=== PATIENT | male | born 1995 | race Caucasian/White ===

== ENCOUNTER 2020-02-12 14:07 | Outpatient (REF) | payer OTHER, SELFPAY ==
[2020-02-12 16:49] LABS: Appearance Urine CLEAR; Color Urine YELLOW; Glucose Urine UA NEG (NEG); Leukocyte Esterase Urine NEG (NEG); Nitrite Urine NEG (NEG); PH 6.5 (5.0-8.0); Urine Blood NEG (NEG); Urine Ketones NEG (NEG); Urine Protein NEG (NEG-TRACE)
[2020-02-12 16:51] LABS: Hematocrit 45.5 % (42-52); Hemoglobin 15.7 g/dl (14.0-18.0); Mean Corpuscular HGB Conc 34.5 g/dl (31.0-36.0); Mean Corpuscular Hemoglobin 29.1 pg (27.0-33.0); Mean Corpuscular Volume 84.3 fL (80-98); Mean Platelet Volume 11.2 fL (9.4-12.4); Platelet Count 306 X10*3/uL (160-400); Red Cell Distribution Width 12.8 % (11.0-16.0); White Blood Count 6.9 X10*3/uL (4.8-10.8)
[2020-02-12 16:55] LABS: RBC Urine 0 /HPF (0); WBC Urine 0 /HPF (0-4)
[2020-02-12 17:04] LABS: Estimated Average Glucose 94 mg/dL; Hemoglobin A1c % 4.9 %
[2020-02-12 17:21] LABS: Alanine Aminotransferase 33 U/L (0-40); Alkaline Phosphatase 64 U/L (39-117); Anion Gap 17 (12-20); Aspartate Amino Transferase 23 U/L (5-37); Bilirubin Total 0.8 mg/dL (0.0-1.0); Blood Urea Nitrogen 9 mg/dL (9-16); Carbon Dioxide 25 mmol/L (22-29); Chloride 100 mmol/L (96-108); Cholesterol 181 mg/dL; Estimated Glomerular Filt Rate > 60; Glucose Fasting 71 mg/dL (60-99); HDL Cholesterol 54 mg/dL; LDL Cholesterol Calculated 108 mg/dl; Potassium 3.7 mmol/l (3.3-5.1); Sodium 138 mmol/L (135-145); Total Protein 7.9 g/dL (6.5-8.0); Triglycerides 96 mg/dL
[2020-02-12 17:41] LABS: Thyroid Stimulating Hormone 0.94 uIU/mL (0.32-4.0)
[2020-02-12 18:23] LABS: Syphilis Screen Nonreactive (Nonreactive)
[2020-02-13 02:51] LABS: CT PCR NOT DETECTED (Not Detect.); NG PCR NOT DETECTED (Not Detect.)
[2020-02-13 08:39] LABS: ~HepC Num1 0.12 S/CO (0.00-0.79); ~Hepatitis C Antibody Nonreactive (Nonreactive)
[2020-02-13 09:00] LABS: HIV AB/AG Nonreactive (Nonreactive); HIV Num 1 0.18 S/CO (0.00-0.99)
[2020-02-20 15:12] LABS: Aldosterone/Renin Ratio 0.3 Ratio (0.9-28.9); Plasma Renin Activity 3.24 ng/mL/h (0.25-5.82)
== END 2020-02-12 14:08 | disposition home or self-care (01) ==
LOC: HO.HMGCLDS 14:07
PROVIDERS: PCP Internal Medicine; Visit Provider Internal Medicine
DX: Z00.00 Encounter for general adult medical examination without abnormal findings (principal); R73.9 Hyperglycemia, unspecified; I10 Essential (primary) hypertension; E66.3 Overweight
CPT/HCPCS: 36415; 80053; 80061; 81001; 82088; 83036; 84443; 85027; 86780; 86803; 87389; 87491; 87591

== ENCOUNTER 2020-02-20 08:28 | Outpatient (REF) | payer OTHER, SELFPAY ==
--- NOTE | 2020-02-20 | US_ITS ---
EXAMINATION: RENAL ARTERY DOPPLER ULTRASOUND CLINICAL INFORMATION: Essential hypertension. COMPARISON: None TECHNIQUE: Renal ultrasound. Doppler ultrasound (spectral analysis and color Doppler) of the renal arteries and aorta were performed. Examination is limited due to overlying bowel gas. FINDINGS: The right kidney measures 11.1 x 6.0 x 6.0 cm in sagittal, AP and transverse dimensions. The left kidney measures 11.7 x 6.3 x 5.0 cm in sagittal, AP and transverse dimensions. The kidneys show no masses, calculi or hydronephrosis. The corticomedullary differentiation is normal. RENAL ARTERY VELOCITIES: Right: Proximally: 142 cm/s. Mid: 151 cm/s. Distal: 120 cm/s. Left: Proximally: 196 cm/s. Mid: 131 cm/s. Distally: 78.8 cm/s. INTERLOBAR RESISTIVE INDICES: Right: Upper: 0.65 Mid: 0.59 Lower pole: 0.60 Left: Upper: 0.62 Mid: 0.56 Lower pole: 0.54 The aortic velocity is 171 cm/s. Renal aortic ratio was not calculated due to elevated mid aortic velocity. US/US renal BI IMPRESSION: 1. The kidneys are normal in appearance. Somewhat limited examination due to overlying bowel gas. 2. Right renal artery velocities and resistive indices are within normal limits. 3. The proximal left renal artery velocity is elevated however interlobar resistive indices on the left are within normal limits. If there is high clinical concern for renal artery stenosis, consider CTA of the abdomen for further evaluation.
--- NOTE | 2020-02-20 08:31 | US_ITS ---
EXAMINATION: RENAL ARTERY DOPPLER ULTRASOUND CLINICAL INFORMATION: Essential hypertension. COMPARISON: None TECHNIQUE: Renal ultrasound. Doppler ultrasound (spectral analysis and color Doppler) of the renal arteries and aorta were performed. Examination is limited due to overlying bowel gas. FINDINGS: The right kidney measures 11.1 x 6.0 x 6.0 cm in sagittal, AP and transverse dimensions. The left kidney measures 11.7 x 6.3 x 5.0 cm in sagittal, AP and transverse dimensions. The kidneys show no masses, calculi or hydronephrosis. The corticomedullary differentiation is normal. RENAL ARTERY VELOCITIES: Right: Proximally: 142 cm/s. Mid: 151 cm/s. Distal: 120 cm/s. Left: Proximally: 196 cm/s. Mid: 131 cm/s. Distally: 78.8 cm/s. INTERLOBAR RESISTIVE INDICES: Right: Upper: 0.65 Mid: 0.59 Lower pole: 0.60 Left: Upper: 0.62 Mid: 0.56 Lower pole: 0.54 The aortic velocity is 171 cm/s. Renal aortic ratio was not calculated due to elevated mid aortic velocity. US/US renal doppler IMPRESSION: 1. The kidneys are normal in appearance. Somewhat limited examination due to overlying bowel gas. 2. Right renal artery velocities and resistive indices are within normal limits. 3. The proximal left renal artery velocity is elevated however interlobar resistive indices on the left are within normal limits. If there is high clinical concern for renal artery stenosis, consider CTA of the abdomen for further evaluation.
== END 2020-02-20 08:29 | disposition home or self-care (01) ==
LOC: HO.HMGCX 08:28
PROVIDERS: PCP Internal Medicine; Visit Provider Internal Medicine
DX: Z00.00 Encounter for general adult medical examination without abnormal findings (principal); I10 Essential (primary) hypertension; R73.9 Hyperglycemia, unspecified; E66.3 Overweight
CPT/HCPCS: 76775; 93975

== ENCOUNTER 2020-03-03 14:24 | Outpatient (REF) | payer OTHER, SELFPAY | END 2020-03-03 14:25 | disposition home or self-care (01) | LOC: HO.HMGCLDS 14:24 | PROVIDERS: Visit Provider Internal Medicine | DX: Z20.828 Contact with and (suspected) exposure to other viral communicable diseases (principal) | CPT/HCPCS: C9803; U0003 ==

== ENCOUNTER → 2020-03-05 14:59 | Outpatient (BNVA) | payer OTHER, SELFPAY | PROVIDERS: PCP Internal Medicine; Referring Provider Internal Medicine; Visit Provider Dietitian, Registered | DX: Z76.89 Persons encountering health services in other specified circumstances (principal) ==

== ENCOUNTER 2020-03-16 09:07 | Outpatient (REF) | payer OTHER, SELFPAY | END 2020-03-16 09:08 | disposition home or self-care (01) | LOC: HO.CT 09:07 | PROVIDERS: PCP Internal Medicine; Visit Provider Internal Medicine | DX: Z13.89 Encounter for screening for other disorder (principal) ==

== ENCOUNTER → 2020-04-09 10:29 | Outpatient (BNVA) | payer OTHER, SELFPAY | PROVIDERS: PCP Internal Medicine; Visit Provider Dietitian, Registered | DX: Z76.89 Persons encountering health services in other specified circumstances (principal) ==

== ENCOUNTER 2021-05-03 09:07 | Outpatient (REF) | payer OTHER, SELFPAY ==
[2021-05-03 11:38] LABS: Appearance Urine CLEAR; Color Urine YELLOW; Glucose Urine UA NEG (NEG); Leukocyte Esterase Urine NEG (NEG); Nitrite Urine NEG (NEG); Urine Blood NEG (NEG); Urine Ketones NEG (NEG); Urine Protein NEG (NEG-TRACE)
[2021-05-03 11:53] LABS: Hemoglobin 14.7 g/dl (14.0-18.0); Mean Corpuscular HGB Conc 33.4 g/dl (31.0-36.0); Mean Corpuscular Hemoglobin 28.8 pg (27.0-33.0); Mean Corpuscular Volume 86.3 fL (80.0-98.0); Mean Platelet Volume 11.1 fL (9.4-12.4); Platelet Count 315 X10*3/uL (160-400); Red Cell Distribution Width 12.6 % (11.0-16.0)
[2021-05-03 12:04] LABS: Alanine Aminotransferase 46 U/L (0-40); Albumin Level 4.8 g/dL (3.5-5.0); Alkaline Phosphatase 73 U/L (39-117); Anion Gap 12 (12-20); Aspartate Amino Transferase 24 U/L (5-37); Bilirubin Total 0.4 mg/dL (0.0-1.0); Blood Urea Nitrogen 8 mg/dL (9-16); Calcium 9.6 mg/dL (8.4-10.2); Carbon Dioxide 27 mmol/L (22-29); Chloride 106 mmol/L (96-108); Cholesterol 188 mg/dL; Estimated Glomerular Filt Rate > 60; Glucose Fasting 87 mg/dL (60-99); HDL Cholesterol 45 mg/dL; LDL Cholesterol Calculated 116 mg/dl; Potassium 4.7 mmol/L (3.3-5.1); Sodium 140 mmol/L (135-145); Total Protein 7.9 g/dL (6.5-8.0); Triglycerides 138 mg/dL
== END 2021-05-03 09:08 | disposition home or self-care (01) ==
LOC: HO.HMGCLDS 09:07
PROVIDERS: PCP Internal Medicine; Visit Provider Internal Medicine
DX: R73.9 Hyperglycemia, unspecified (principal); E66.3 Overweight; I10 Essential (primary) hypertension
CPT/HCPCS: 36415; 80053; 80061; 81003; 85027

== ENCOUNTER 2023-07-14 08:58 | Outpatient (AMB) | payer OTHER, SELFPAY ==
--- NOTE | 2023-07-14 09:00 | MHC.PC.OV ---
Vital Signs 07/14/23 09:01 Height 6 ft 1 in Weight 308 lb BMI 40.6 BP 136/74 Blood Pressure Location Rt brachial Position Sitting Pulse 89 Pulse Source Pulse Oximeter Pulse Oximetry (%) 98 Oxygen Delivery Method Room Air Intake Visit Reasons: annual PE Intake Note: Pt is here today for PE. Allergies No Known Allergies Allergy (Verified 07/14/23 09:05) Medication List - Last Reconciled 07/14/23 by Dianne Muir MD multivitamin 1 tab PO DAILY olmesartan 20 mg PO DAILY Tobacco use date assessed: 07/14/23 Dental Screening Dental Screen Date: 07/14/23 Did you have a dental visit in the last 12 months?: Yes Did you have a dental problem in the last 6 months where you did not have access to dental care?: No Was dental information given to patient?: Patient has dentist HPI annual PE HPI Details Pt presents for PE. he complains of chronic anxiety and has been looking for a new counselor. 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 1. Little interest or pleasure in doing things: several days 2. Feeling down, depressed, or hopeless: not at all 3. Trouble falling or staying asleep, or sleeping too much: not at all 4. Feeling tired or having little energy: not at all 5. Poor appetite or overeating: nearly every day 6. Feeling bad about yourself - or that you are a failure or have let yourself or your family down: more than half the days 7. Trouble concentrating on things, such as reading the newspaper or watching television: more than half the days 8. Moving or speaking so slowly that other people could have noticed. Or the opposite - being so fidgety or restless that you have been moving around a lot more than usual: more than half the days 9. Thoughts that you would be better off or of hurting yourself in some way: not at all Total score: 10 Depression Screening Interpretation: Positive (Patient has established counseling and declined medication) Depression Screening Follow-up: Existing condition and In treatment Depression Screening Done: Yes Source: Developed by Drs. Robert Christian, Tiana Voss, Juan F Gael and colleagues, with an educational eliz from [employer]. Thrive Questionnaire Date Thrive assessed: 07/14/23 I am a: Patient What is your living situation today?: I have a steady place to live Within the past 12 months, did the food you bought not last and you didn't have the money to get more?: Never true Within the past 12 months, did you worry whether your food would run out before you got money to buy more?: Never true Do you have trouble paying for medicines?: No Do you have trouble getting transportation to medical appointments?: No Do you have trouble paying your heating and electricity bill?: No Do you have trouble taking care of your child, family member or friend?: No Do you have trouble with day-to-day activities such as bathing, preparing meals, shopping, managing finances, etc.?: No Are you currently unemployed and looking for a job?: No Are you interested in more education?: No Please select the resources that you would like help with: None THRIVE Score: 0 AUDIT C Alcohol Use Questionnaire (AUDIT-C) 1. How often do you have a drink containing alcohol?: Monthly or less 2. How many drinks containing alcohol do you have on a typical day when you are drinking?: 1 or 2 3. How often do you have six or more drinks on one occasion?: Never Total Score: 1 STEVE-7 AMB Questionnaire STEVE-7 Date STEVE - 7 assessed: 07/14/23 Feeling nervous, anxious, or on edge: 3 = Nearly every day Not being able to stop or control worryin = Nearly every day Worrying too much about different things: 3 = Nearly every day Trouble relaxin = More than half the days Being so restless that it is hard to sit still: 2 = More than half the days Becoming easily annoyed or irritable: 2 = More than half the days Feeling afraid as if something awful might happen: 0 = Not at all Total STEVE-7 score (0-4 normal; 5-9 mild; 10-14 moderate; 15-21 severe): 15 Source: Developed by Drs. Robert Christian, Tiana Voss, Juan F Gale and colleagues, with an educational eliz from [employer]. Review of Systems Const All systems reviewed & are unremarkable except as noted in HPI and below Eyes Reports no additional complaints ENT Reports no additional complaints Card Reports no additional complaints Resp Reports no additional complaints GI Reports no additional complaints Reports no additional complaints Musc Reports no additional complaints Physical exam (Primary Care) Vital Signs: Last Vital Signs Pulse 89 07/14/23 09:01 BP 136/74 07/14/23 09:01 Pulse Ox 98 07/14/23 09:01 Oxygen Delivery Method Room Air 07/14/23 09:01 BMI result Body Mass Index 40.6 Tobacco/Smoking Status: Tobacco use Status Tobacco use date assessed 07/14/23 07/14/23 09:09 Patient Tobacco Use Status Never used Tobacco 07/14/23 09:09 e-Cigarette/Vaping Use Never Used 07/14/23 09:00 Depression Screening Interpretation: Positive (Patient has established counseling and declined medication) Depression Screening Follow-up: Existing condition and In treatment Thrive Assessment: Date of Thrive Assessment Date Thrive assessed 11/26/20 07/14/23 09:00 Const General: no acute distress HENMT Head: Yes normal to inspection Ears: hearing grossly normal bilaterally General nose exam: Normal external nose present Face and sinus: Yes normal facial exam Mouth: Normal oral and palatal mucosa present Throat: Yes posterior oropharynx normal Eyes General: appearance normal, both eyes and all related structures Neck Neck: Yes no lymphadenopathy and Yes supple Resp Effort & Inspection: normal respiratory effort Auscultation: clear to auscultation bilaterally Cardio Rhythm: regular rhythm Heart sounds: S1 normal heart sound present and S2 normal heart sound present GI Inspection: Yes normal to inspection Palpation (GI): Soft to palpation Percussion: Yes normal to percussion Auscultation: normal bowel sounds Assessment and Plan Assessment & Plan (1) Annual physical exam: Code(s): Z00.00 - Encounter for general adult medical examination without abnormal findings Plan: Well-balanced diet regular exercise weight loss discussed with the patient return for fasting blood work (2) HTN (hypertension): Code(s): I10 - Essential (primary) hypertension Plan: Restart olmesartan (3) Overweight: Code(s): E66.3 - Overweight Plan: Increase physical activity well-balanced diet decreasing caloric intake discussed with the patient (4) Anxiety: Code(s): F41.9 - Anxiety disorder, unspecified Plan: For chronic anxiety and depression mindfulness, increasing physical activity following up with a counselor discussed. He has not interested in taking medications, f/u in 2 months Orders: Orders Comprehensive [place]. Panel Fast Today E66.3 - Overweight, I10 - Essential (primary) hypertension, R73.9 - Hyperglycemia, unspecified, Z00.00 - Encounter for general adult medical examination without abnormal findings Lipid Panel Today E66.3 - Overweight, I10 - Essential (primary) hypertension, R73.9 - Hyperglycemia, unspecified, Z00.00 - Encounter for general adult medical examination without abnormal findings Complete Blood Count Auto Diff Today E66.3 - Overweight, I10 - Essential (primary) hypertension, R73.9 - Hyperglycemia, unspecified, Z00.00 - Encounter for general adult medical examination without abnormal findings Hemoglobin A1c Today E66.3 - Overweight, I10 - Essential (primary) hypertension, R73.9 - Hyperglycemia, unspecified, Z00.00 - Encounter for general adult medical examination without abnormal findings UA w Microscopic Today E66.3 - Overweight, I10 - Essential (primary) hypertension, R73.9 - Hyperglycemia, unspecified, Z00.00 - Encounter for general adult medical examination without abnormal findings Medications: New olmesartan 20 mg PO DAILY 90 tabs 2RF olmesartan 20 mg PO DAILY 90 tabs 2RF Discontinued bupropion HCl XL Discontinued Reason: Doctor's Order 150 mg PO QAM 90 tabs 2RF olmesartan Discontinued Reason: Doctor's Order 20 mg PO DAILY 90 tabs 5RF Coding Level of Care Code Est Pt Prev Care 18-39y(54406) Diagnoses Annual physical exam Z00.00 HTN (hypertension) I10 Overweight E66.3 Anxiety F41.9
[2023-07-14 09:01] VITALS: BP 136/74; PULSE 89; O2SAT 98; BMI 40.6
== END 2023-07-14 11:48 | disposition home or self-care (01) ==
PROVIDERS: PCP Internal Medicine; Visit Provider Internal Medicine
DX: Z00.00 Encounter for general adult medical examination without abnormal findings (principal); I10 Essential (primary) hypertension; E66.3 Overweight; F41.9 Anxiety disorder, unspecified
CPT/HCPCS: 99395

== ENCOUNTER 2023-10-20 08:04 | Outpatient (AMB) | payer OTHER, SELFPAY ==
[2023-10-20 08:19] VITALS: BP 136/80; PULSE 84; O2SAT 97; BMI 41.0
--- NOTE | 2023-10-20 08:19 | A.OFFPC_ITS ---
Vital Signs 10/20/23 08:19 Height 6 ft 1 in Weight 311 lb BMI 41.0 BP 136/80 Blood Pressure Location Lt brachial Position Sitting Pulse 84 Pulse Source Pulse Oximeter Pulse Oximetry (%) 97 Oxygen Delivery Method Room Air Intake Visit Reasons: 3M F/U Intake Note: Pt is here today for his 3mo. f/u Allergies No Known Allergies Allergy (Verified 10/20/23 08:20) Medication List - Last Reconciled 10/20/23 by Dianne Muir MD olmesartan 20 mg PO DAILY Tobacco use date assessed: 10/20/23 Dental Screening Dental Screen Date: 10/20/23 Did you have a dental visit in the last 12 months?: Yes Did you have a dental problem in the last 6 months where you did not have access to dental care?: No Was dental information given to patient?: Patient has dentist HPI 3M F/U HPI Details Pt presents for f/u HTN, controlled on Olmesartan. pt is established with a therapist and refuses medication, SI, HI. 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 1. Little interest or pleasure in doing things: more than half the days 2. Feeling down, depressed, or hopeless: several days 3. Trouble falling or staying asleep, or sleeping too much: nearly every day 4. Feeling tired or having little energy: nearly every day 5. Poor appetite or overeating: more than half the days 6. Feeling bad about yourself - or that you are a failure or have let yourself or your family down: not at all 7. Trouble concentrating on things, such as reading the newspaper or watching television: more than half the days 8. Moving or speaking so slowly that other people could have noticed. Or the opposite - being so fidgety or restless that you have been moving around a lot more than usual: several days 9. Thoughts that you would be better off or of hurting yourself in some way: not at all Total score: 14 Depression Screening Interpretation: Positive Depression Screening Follow-up: Existing condition and In treatment Depression Screening Done: Yes Source: Developed by Drs. Robert Christian, Tiana Voss, Juan F Gale and colleagues, with an educational eliz from [employer]. Thrive Questionnaire Date Thrive assessed: 10/20/23 I am a: Patient What is your living situation today?: I have a steady place to live Within the past 12 months, did the food you bought not last and you didn't have the money to get more?: Never true Within the past 12 months, did you worry whether your food would run out before you got money to buy more?: Never true Do you have trouble paying for medicines?: No Do you have trouble getting transportation to medical appointments?: No Do you have trouble paying your heating and electricity bill?: No Do you have trouble taking care of your child, family member or friend?: No Do you have trouble with day-to-day activities such as bathing, preparing meals, shopping, managing finances, etc.?: No Are you currently unemployed and looking for a job?: No Are you interested in more education?: No Please select the resources that you would like help with: Housing/Senior Living Currently or been in a relationship where the following occur: I choose not to answer THRIVE Score: 0 AUDIT C Alcohol Use Questionnaire (AUDIT-C) 1. How often do you have a drink containing alcohol?: Monthly or less 2. How many drinks containing alcohol do you have on a typical day when you are drinking?: 10 or more 3. How often do you have six or more drinks on one occasion?: Monthly Total Score: 7 STEVE-7 AMB Questionnaire STEVE-7 Date STEVE - 7 assessed: 10/20/23 Feeling nervous, anxious, or on edge: 2 = More than half the days Not being able to stop or control worryin = More than half the days Worrying too much about different things: 2 = More than half the days Trouble relaxin = Nearly every day Being so restless that it is hard to sit still: 1 = Several days Becoming easily annoyed or irritable: 2 = More than half the days Feeling afraid as if something awful might happen: 0 = Not at all Total STEVE-7 score (0-4 normal; 5-9 mild; 10-14 moderate; 15-21 severe): 12 Source: Developed by Drs. Robert Christian, Tiana Voss, Juan F Gale and colleagues, with an educational eliz from [employer]. Review of Systems Const All systems reviewed & are unremarkable except as noted in HPI and below Reports no additional complaints Eyes Reports no additional complaints ENT Reports no additional complaints Card Reports no additional complaints Resp Reports no additional complaints GI Reports no additional complaints Physical exam (Primary Care) Vital Signs: Last Vital Signs Pulse 84 10/20/23 08:19 BP 136/90 H 10/20/23 08:19 Pulse Ox 97 10/20/23 08:19 Oxygen Delivery Method Room Air 10/20/23 08:19 BMI result Body Mass Index 41.0 Tobacco/Smoking Status: Tobacco use Status Tobacco use date assessed 10/20/23 10/20/23 08:22 Patient Tobacco Use Status Never used Tobacco 10/20/23 08:22 e-Cigarette/Vaping Use Never Used 10/20/23 08:22 PHQ-9: PHQ-9 Score PHQ-9: Total score 14 10/20/23 08:29 Depression Screening Interpretation: Positive Depression Screening Follow-up: Existing condition and In treatment Thrive Assessment: Date of Thrive Assessment Date Thrive assessed 10/20/23 10/20/23 08:22 Currently or been in a relationship where the following occur: I choose not to answer Const General: no acute distress Eyes General: appearance normal, both eyes and all related structures Neck Neck: Yes supple Resp Effort & Inspection: normal respiratory effort Auscultation: clear to auscultation bilaterally Cardio Rhythm: regular rhythm Heart sounds: S1 normal heart sound present and S2 normal heart sound present Assessment and Plan Assessment & Plan (1) Depression: Comment: bipolar used to take med in teens, established with therapist, refuses meds Code(s): F32.9 - Major depressive disorder, single episode, unspecified Plan: f/u with therapist (2) Obesity (BMI 30-39.9): Code(s): E66.9 - Obesity, unspecified Plan: weight loss discussed (3) HTN (hypertension): Code(s): I10 - Essential (primary) hypertension Plan: cont med Coding Level of Care Code Est Pt Level 3 (08951) Diagnoses Depression F32.9 Obesity (BMI 30-39.9) E66.9 HTN (hypertension) I10
== END 2023-10-20 08:42 | disposition home or self-care (01) ==
PROVIDERS: PCP Internal Medicine; Visit Provider Internal Medicine
DX: F31.9 Bipolar disorder, unspecified (principal); E66.9 Obesity, unspecified; I10 Essential (primary) hypertension; Z68.41 Body mass index [BMI] 40.0-44.9, adult
CPT/HCPCS: 99213

== ENCOUNTER 2024-07-15 13:30 | Outpatient (AMB) | payer OTHER, SELFPAY ==
[2024-07-15 13:33] VITALS: BP 122/78; PULSE 94; RESP 18; TEMP 37.2; O2SAT 96; BMI 42.0
--- NOTE | 2024-07-15 13:33 | A.OFFPC_ITS ---
Vital Signs 07/15/24 13:33 Height 6 ft 1 in Weight 318 lb BMI 42.0 BP 122/78 Blood Pressure Location Lt brachial Position Sitting Respiration 18 Pulse 94 Pulse Source Pulse Oximeter Temp 98.9 F Temp Source Oral Pulse Oximetry (%) 96 Oxygen Delivery Method Room Air Intake Visit Reasons: Annual PE Intake Note: Pt is here today for PE. Allergies No Known Allergies Allergy (Verified 07/15/24 13:34) Medication List - Last Reconciled 07/15/24 by Dianne Muir MD olmesartan 20 mg PO DAILY Tobacco use date assessed: 07/15/24 Dental Screening Dental Screen Date: 07/15/24 Did you have a dental visit in the last 12 months?: Yes Did you have a dental problem in the last 6 months where you did not have access to dental care?: No Was dental information given to patient?: Patient has dentist HPI Annual PE HPI Details Pt presents for PE. 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 1. Little interest or pleasure in doing things: more than half the days 2. Feeling down, depressed, or hopeless: several days 3. Trouble falling or staying asleep, or sleeping too much: nearly every day 4. Feeling tired or having little energy: nearly every day 5. Poor appetite or overeating: more than half the days 6. Feeling bad about yourself - or that you are a failure or have let yourself or your family down: not at all 7. Trouble concentrating on things, such as reading the newspaper or watching television: more than half the days 8. Moving or speaking so slowly that other people could have noticed. Or the opposite - being so fidgety or restless that you have been moving around a lot more than usual: several days 9. Thoughts that you would be better off or of hurting yourself in some way: not at all Total score: 14 Depression Screening Interpretation: Positive Depression Screening Follow-up: Existing condition and In treatment Depression Screening Done: Yes 15986 - PHQ-9 Billing: Yes Source: Developed by Drs. Robert Christian, Tiana Voss, Juan F Gale and colleagues, with an educational eliz from [employer]. Thrive Questionnaire Date Thrive assessed: 07/15/24 I am a: Patient What is your living situation today?: I have a steady place to live Within the past 12 months, did the food you bought not last and you didn't have the money to get more?: Never true Within the past 12 months, did you worry whether your food would run out before you got money to buy more?: Never true Do you have trouble paying for medicines?: No Do you have trouble getting transportation to medical appointments?: No Do you have trouble paying your heating and electricity bill?: No Do you have trouble taking care of your child, family member or friend?: No Do you have trouble with day-to-day activities such as bathing, preparing meals, shopping, managing finances, etc.?: No Are you currently unemployed and looking for a job?: No Are you interested in more education?: No Please select the resources that you would like help with: None Currently or been in a relationship where the following occur: I choose not to answer THRIVE Score: 0 AUDIT C Alcohol Use Questionnaire (AUDIT-C) 1. How often do you have a drink containing alcohol?: 2-4 times a month 2. How many drinks containing alcohol do you have on a typical day when you are drinking?: 1 or 2 3. How often do you have six or more drinks on one occasion?: Less than monthly Total Score: 3 STEVE-7 AMB Questionnaire STEVE-7 Date STEVE - 7 assessed: 07/15/24 Feeling nervous, anxious, or on edge: 3 = Nearly every day Not being able to stop or control worryin = Nearly every day Worrying too much about different things: 2 = More than half the days Trouble relaxin = Nearly every day Being so restless that it is hard to sit still: 2 = More than half the days Becoming easily annoyed or irritable: 3 = Nearly every day Feeling afraid as if something awful might happen: 1 = Several days Total STEVE-7 score (0-4 normal; 5-9 mild; 10-14 moderate; 15-21 severe): 17 Source: Developed by Drs. Robert Christian, Tiana Voss, Juan F Gale and colleagues, with an educational eliz from [employer]. STEVE-7 Assessment Billing STEVE-7 Assessment Tool: STEVE-7 Assessment 23624 Review of Systems Const All systems reviewed & are unremarkable except as noted in HPI and below Reports no additional complaints Eyes Reports no additional complaints ENT Reports no additional complaints Card Reports no additional complaints Resp Reports no additional complaints GI Reports no additional complaints Reports no additional complaints Musc Reports no additional complaints Physical exam (Primary Care) Vital Signs: Last Vital Signs Temp 98.9 F 07/15/24 13:33 Pulse 94 07/15/24 13:33 Resp 18 07/15/24 13:33 BP 122/78 07/15/24 13:33 Pulse Ox 96 07/15/24 13:33 Oxygen Delivery Method Room Air 07/15/24 13:33 BMI result Body Mass Index 42.0 Tobacco/Smoking Status: Tobacco use Status Tobacco use date assessed 07/15/24 07/15/24 13:40 Patient Tobacco Use Status Never used Tobacco 07/15/24 13:40 e-Cigarette/Vaping Use Never Used 07/15/24 13:40 PHQ-9: PHQ-9 Score PHQ-9: Total score 14 07/15/24 13:40 Depression Screening Interpretation: Positive Depression Screening Follow-up: Existing condition and In treatment Thrive Assessment: Date of Thrive Assessment Date Thrive assessed 07/15/24 07/15/24 13:40 Currently or been in a relationship where the following occur: I choose not to answer Const General: no acute distress HENMT Head: Yes normal to inspection Face and sinus: Yes normal facial exam Mouth: Normal oral and palatal mucosa present Throat: Yes posterior oropharynx normal Eyes General: appearance normal, both eyes and all related structures Neck Neck: Yes no lymphadenopathy and Yes supple Resp Effort & Inspection: normal respiratory effort Auscultation: clear to auscultation bilaterally Cardio Rhythm: regular rhythm Heart sounds: S1 normal heart sound present and S2 normal heart sound present GI Inspection: Yes normal to inspection Palpation (GI): Soft to palpation Percussion: Yes normal to percussion Auscultation: normal bowel sounds Coding Level of Care Code Est Pt Prev Care 18-39y(82408) Diagnoses HTN (hypertension) I10 Obesity (BMI 30-39.9) E66.9 Annual physical exam Z00.00 Depression F32.9 Additional Codes STEVE-7 Assessment Billing - STEVE-7 Assessment Tool: STEVE-7 Assessment 80366 ([id number]) PHQ-9 - 39078 - PHQ-9 Billing: Yes ([id number]) Assessment & Plan Assessment & Plan (1) HTN (hypertension): Code(s): I10 - Essential (primary) hypertension Category: Medical Plan: Continue Olmesartan (2) Obesity (BMI 30-39.9): Code(s): E66.9 - Obesity, unspecified Category: Medical Plan: Decreasing caloric intake increasing physical activity weight loss discussed with the patient (3) Annual physical exam: Code(s): Z00.00 - Encounter for general adult medical examination without abnormal findings Category: Medical Plan: Well-balanced diet regular physical activity weight loss discussed with the patient. he will return for fasting blood work. (4) Depression: Comment: bipolar used to take med in teens, established with therapist, refuses meds Code(s): F32.9 - Major depressive disorder, single episode, unspecified Category: Medical Plan: Continue with counseling patient declined medications Orders: Orders Comprehensive Elizabeth. Panel Fast Today E66.3 - Overweight, E66.9 - Obesity, unspecified, I10 - Essential (primary) hypertension Complete Blood Count Auto Diff Today E66.3 - Overweight, E66.9 - Obesity, unspecified, I10 - Essential (primary) hypertension Lipid Panel Today E66.3 - Overweight, E66.9 - Obesity, unspecified, I10 - Essential (primary) hypertension TSH reflex Free T4 Today E66.3 - Overweight, E66.9 - Obesity, unspecified, I10 - Essential (primary) hypertension UA w Microscopic Today E66.3 - Overweight, E66.9 - Obesity, unspecified, I10 - Essential (primary) hypertension Medications: Refilled olmesartan 20 mg PO DAILY 90 tabs 3RF
--- OUTSIDE RECORDS SUMMARY | 2024-07-15 15:33 | XMS_ITS | Clinical Summary ---
Author Organization [facility] Address [address] [facility] [address] [address] [place] [address] Phone Care Team Providers Care Program Support Assistant Name Role Phone Dianne Muir MD Primary Care Provider [phone] Allergies No known active allergies Medications Multiple Vitamin (multivitamin) tabletIndication s:Essential (primary) hypertension,Oth er obesity due to excess calories Take 1 tablet by mouth 1 (one) time each day Active Blood Pressure kitIndications:C hronic kidney disease, not otherwise specified 1 kit 1 (one) time each day 1 kit 09/09/2020 Active lisinopril 10 MG tablet Take 1 tablet (10 mg total) by mouth 1 (one) time each day 30 tablet 5 11/17/2020 Active Active Problems Problem Noted Date Diagnosed Date Essential (primary) hypertension 09/09/2020 Other obesity due to excess calories 09/09/2020 Bipolar 1 disorder non-psych otic currently depressed, severe 09/08/2020 Depression annual review 09/08/2020 Hypertension 09/08/2020 Hyperglycemia 09/08/2020 Renal artery stenosis 09/08/2020 Overweight 09/08/2020 Family History Medical History Relation Comments Cancer Maternal Grandmother Hypertension Mother Relation Status Comments Maternal Grandmother Mother Social History Tobacco Use Types Packs/Day Years Used Date Smoking Tobacco: Never Smokeless Tobacco: Never Alcohol Use Standard Drinks/Week Comments Yes 0 (1 standard drink = 0.6 oz pur e alcohol) Sex and Gender Information Value Date Recorded Sex Assigned at Not on file Legal Sex Male 11:29 AM EDT Gender Identity Not on file Sexual Orientation Not on file Last Filed Vital Signs Vital Sign Reading Time Taken Comments Blood Pressure 132/82 11/17/2020 2:59 PM EDT Pulse 85 11/17/2020 2:59 PM EDT Temperature - - Respiratory Rate - - Oxygen Saturation - - Inhaled Oxygen Concentration - - Weight 122 kg (270 lb) 11/17/2020 2:59 PM EDT Height - - Body Mass Index - - Plan of Treatment Health Maintenance Due Date Last Done Comments Hepatitis B Vaccine (1 of 3 - 19+ 3-dose series) 01/31/2016 Influenza Vaccine (Season Ended) 2024 Pneumococcal Vaccine: Peds ( 0 to 5 Years) and At-Risk Patients (6 to 49 Years) Aged Out No longer eligible b ased on patient's age to complete this topic Insurance [employer] Care Teams Program Support Assistant Relationship Specialty Start Date End Date Dianne Muir MD [address] [place] [address] PCP - General Internal Medicine 07/06/20
== END 2024-07-15 14:03 | disposition home or self-care (01) ==
LOC: HO.HMCC 13:30
PROVIDERS: PCP Internal Medicine; Visit Provider Internal Medicine
DX: Z00.00 Encounter for general adult medical examination without abnormal findings (principal); I10 Essential (primary) hypertension; E66.9 Obesity, unspecified; Z68.41 Body mass index [BMI] 40.0-44.9, adult; F32.9 Major depressive disorder, single episode, unspecified

== ENCOUNTER → 2024-07-15 13:30 | Outpatient (BNVA) | payer OTHER, SELFPAY | PROVIDERS: PCP Internal Medicine; Visit Provider Internal Medicine | DX: Z00.00 Encounter for general adult medical examination without abnormal findings (principal); I10 Essential (primary) hypertension; E66.9 Obesity, unspecified; Z68.41 Body mass index [BMI] 40.0-44.9, adult; F32.9 Major depressive disorder, single episode, unspecified; Z79.899 Other long term (current) drug therapy | CPT/HCPCS: 96127 ==

== ENCOUNTER 2024-07-16 10:16 | Outpatient (REF) | payer OTHER, SELFPAY ==
--- OUTSIDE RECORDS SUMMARY | 2024-07-16 12:13 | XMS_ITS | Clinical Summary ---
Author Organization [facility] Address [address] [facility] [address] [address] [place] [address] Phone Care Team Providers Care All [employer] Name Role Phone Dianne Muir MD Primary Care Provider [phone] Allergies No known active allergies Medications Multiple [...] this topic Insurance [employer] Care Teams All [employer] Relationship Specialty Start Date End Date Dianne Muir MD [address] [place] [address] PCP - General Internal Medicine 07/06/20
[2024-07-16 13:27] LABS: MANUAL DIFF FLAG NO
[2024-07-16 13:37] LABS: Basophils Percent Auto 0.3 % (0-2); Eosinophils Absolute Auto 0.1 X10*3/uL (0.0-0.4); Eosinophils Percent Auto 1.4 % (0-4); Hemoglobin 15.6 g/dl (14.0-18.0); Imm Gran Abs Auto 0.04 X10*3/uL (0.00-0.03); Imm Gran Pct Auto 0.6 % (0.0-0.4); Lymphocytes Absolute Auto 1.9 X10*3/uL (1.2-4.9); Lymphocytes Percent Auto 29.6 % (20-40); Mean Corpuscular HGB Conc 33.9 g/dl (31.0-36.0); Mean Corpuscular Hemoglobin 28.5 pg (27.0-33.0); Mean Corpuscular Volume 84.1 fL (80.0-98.0); Mean Platelet Volume 11.1 fL (9.4-12.4); Monocytes Absolute Auto 0.6 X10*3/uL (0.1-1.2); Monocytes Percent Auto 8.9 % (2-11); Neutrophils Absolute Auto 3.8 x10*3/uL (2.0-8.3); Neutrophils Percent Auto 59.2 % (45-73); Platelet Count 352 X10*3/uL (160-400); Red Blood Count 5.47 X10*6/uL (4.60-5.80); Red Cell Distribution Width 12.8 % (11.0-16.0); White Blood Count 6.4 X10*3/uL (4.8-10.8)
[2024-07-16 13:52] LABS: Appearance Urine Clear; Color Urine Yellow; Glucose Urine UA Negative (Negative); Leukocyte Esterase Urine Negative (Negative); Nitrite Urine Negative (Negative); PH 7.5 (5.0-9.0); Specific Gravity - Urine 1.025 (1.005-1.025); Urine Blood Negative (Negative); Urine Ketones Trace mg/dL (Negative); Urine Protein Trace mg/dL (Neg-Trace)
[2024-07-16 13:56] LABS: Bacteria Urine None Seen (None Seen); Hyaline Casts Urine 0-2 /LPF (0-2); RBC Urine 0-2 /HPF (0-2); Squamous Epithelial Cell Urine 0-2 /HPF (0-2); WBC Urine 0-5 /HPF (0-5)
[2024-07-16 14:05] LABS: Alanine Aminotransferase 124 U/L (0-40); Anion Gap 13 (12-20); Aspartate Amino Transferase 64 U/L (5-37); Bilirubin Total 0.7 mg/dL (0.0-1.0); Blood Urea Nitrogen 9 mg/dL (9-16); Calcium 9.9 mg/dL (8.4-10.2); Carbon Dioxide 24 mmol/L (22-29); Chloride 105 mmol/L (96-108); Cholesterol 206 mg/dL (<200); Estimated Glomerular Filt Rate > 60; Glucose Fasting 81 mg/dL (60-99); HDL Cholesterol 46 mg/dL (>40); LDL Cholesterol Calculated 130 mg/dL (<100); Potassium 4.2 mmol/L (3.3-5.1); Sodium 138 mmol/L (135-145); Total Protein 8.4 g/dL (6.5-8.0); Triglycerides 154 mg/dL (<150)
[2024-07-16 14:35] LABS: TSH reflex Free T4 1.11 uIU/mL (0.32-4.0)
[2024-07-16 17:22] LABS: Alkaline Phosphatase 67 U/L (39-117)
== END 2024-07-16 10:17 | disposition home or self-care (01) ==
LOC: HO.HMGCLDS 10:16
PROVIDERS: PCP Internal Medicine; Visit Provider Internal Medicine
DX: E66.9 Obesity, unspecified (principal); I10 Essential (primary) hypertension; E66.3 Overweight
CPT/HCPCS: 36415; 80053; 80061; 81001; 84443; 85025